=== PATIENT | male | born 1965 | race Caucasian/White ===

== ENCOUNTER 2024-08-04 14:53 | Emergency (ER) | payer MEDICARE, MEDICAID ==
[~2024-08-04] VITALS: Ht 175.3 cm; Wt 70.0 kg
[~2024-08-04 14:53] MED LIST: INSU100I31 SQ; LOSA50TA64 PO; LURA20TA2; MELA3TAB39 PO; POTA-197 PO; PROP20TA6 PO; SIMV10TA98 PO
[2024-08-04 15:18] VITALS: TEMP 98.3
[2024-08-04 17:05] VITALS: BP 108/77; PULSE 82; RESP 16; O2SAT 98
== END 2024-08-04 17:07 | disposition home or self-care (01) ==
LOC: ER 14:53
DX: I95.9 Hypotension, unspecified (principal)
CPT/HCPCS: 99284